=== PATIENT | female | born 1995 | race Caucasian/White ===

== ENCOUNTER 2018-11-23 13:02 | Emergency (ER) | payer MEDICAID, OTHER ==
[~2018-11-23] VITALS: Ht 170.2 cm; Wt 66.8 kg
[~2018-11-23 13:02] MED LIST: GUAI120015 PO; IBUP-1986 PO
[2018-11-23 13:44] VITALS: BP 101/61
[2018-11-23] MEDS ORDERED: CefTRIAXone 250MG IM Kit w/LIDOcaine IM ONE (14:25)
[2018-11-23] MEDS ORDERED: azithromycin 250mg tablet PO ONE (14:25)
[2018-11-23 14:26] LABS: URINE HCG NEGATIVE (NEG)
[2018-11-23 14:32] LABS: CLARITY,URINE CLEAR (Clear); COLOR,URINE STRAW (Yellow); GLUCOSE, URINE NEGATIVE (Neg); KETONES,URINE NEGATIVE (Neg); LEUKOCYTE ESTERASE ,URINE NEGATIVE (Neg); NITRITES, URINE NEGATIVE (Neg); OCCULT BLOOD,URINE NEGATIVE (Neg); PROTEIN,URINE NEGATIVE (Neg); UROBILINOGEN,URINE 0.2 E.U/dL (0.2-1.0)
[2018-11-23 14:40] LABS: UA COLLECTION TYPE NON-SPECIFIED
[2018-11-23] MEDS ORDERED: PHEN-786 PO (15:19)
== END 2018-11-23 15:48 | disposition home or self-care (01) ==
LOC: ER 13:02
DX: R30.0 Dysuria (principal); R35.0 Frequency of micturition; R39.15 Urgency of urination; Z79.899 Other long term (current) drug therapy
CPT/HCPCS: 81003; 81025; 96372; 99283; J0696

== ENCOUNTER 2018-11-28 08:43 | Emergency (ER) | payer MEDICAID, OTHER ==
[~2018-11-28] VITALS: Ht 170.2 cm; Wt 65.5 kg
[~2018-11-28 08:43] MED LIST changes: +PHEN-786 PO
[2018-11-28 09:21] LABS: BASOPHILS # (AUTO) 0.1 X10'3 (0-0.2); BASOPHILS % (AUTO) 1.5 % (0-1); EOSINOPHILS # (AUTO) 0.5 X10'3 (0-0.9); EOSINOPHILS % (AUTO) 9.9 % (0-6); HEMATOCRIT 43.2 % (35.0-45.0); LYMPHOCYTES % (AUTO) 43.4 % (21-51); MEAN CORPUSCULAR HEMOGLOBIN 33.3 PG (27.0-31.0); MEAN CORPUSCULAR HGB CONC 34.9 g/dL (33.0-36.5); MEAN CORPUSCULAR VOLUME 95.5 FL (78-98); MEAN PLATELET VOLUME 8.5 FL (7.4-10.4); MONOCYTES # (AUTO) 0.4 X10'3 (0-0.9); MONOCYTES % (AUTO) 9.6 % (2-12); NEUTROPHILS # (AUTO) 1.6 X10'3 (1.8-7.7); NEUTROPHILS % (AUTO) 35.6 % (42-75); PLATELET COUNT 252 X10'3 (140-440); RED BLOOD COUNT 4.52 X10'6 (4.20-5.60); RED CELL DISTRIBUTION WIDTH 12.5 % (11.5-14.5); WHITE BLOOD COUNT 4.6 X10'3 (4.5-11.0)
[2018-11-28 09:35] LABS: ALANINE AMINOTRANSFERASE 21 U/L (12-78); ALBUMIN 4.6 G/DL (3.4-5.0); ALBUMIN/GLOBULIN RATIO 1.2 (1.1-1.5); ALKALINE PHOSPHATASE 64 IU/L (46-116); ANION GAP 9 (8-16); ASPARTATE AMINO TRANSFERASE 20 U/L (10-37); BILIRUBIN,TOTAL 1.5 MG/DL (0.1-1.0); BLOOD UREA NITROGEN 13 MG/DL (7-18); BUN/CREATININE RATIO 16.7 (6.6-38.0); CALCIUM 9.2 MG/DL (8.5-10.1); CHLORIDE 104 MMOL/L (99-107); CREATININE 0.78 MG/DL (0.40-0.90); GLUCOSE 88 MG/DL (70-104); SODIUM 139 MMOL/L (135-145); TOTAL CARBON DIOXIDE 26.2 MMOL/L (24-32); TOTAL PROTEIN 8.3 G/DL (6.4-8.2); eGFR > 90 ML/MIN
[2018-11-28 10:02] LABS: CLARITY,URINE SLIGHTLY CLOUDY (Clear); COLOR,URINE YELLOW (Yellow); GLUCOSE, URINE NEGATIVE (Neg); KETONES,URINE NEGATIVE (Neg); LEUKOCYTE ESTERASE ,URINE NEGATIVE (Neg); NITRITES, URINE NEGATIVE (Neg); OCCULT BLOOD,URINE NEGATIVE (Neg); PROTEIN,URINE NEGATIVE (Neg); UROBILINOGEN,URINE 0.2 E.U/dL (0.2-1.0)
[2018-11-28 10:15] LABS: UA COLLECTION TYPE CLN CATCH MIDSTREAM
[2018-11-28 10:17] LABS: BACTERIA,URINE 2+ /HPF (Neg); MUCUS STRANDS NONE SEEN /LPF (Neg); RBC,URINE NONE SEEN /HPF (0-2); SQUAMOUS EPITHELIAL CELL,UR MANY /LPF (FEW); WBC,URINE 0-4 /HPF (0-4)
[2018-11-28 10:24] LABS: URINE HCG NEGATIVE (NEG)
[2018-11-28 10:44] VITALS: BP 109/55
== END 2018-11-28 10:46 | disposition home or self-care (01) ==
LOC: ER 08:44
DX: G89.29 Other chronic pain (principal); R10.2 Pelvic and perineal pain; Z79.899 Other long term (current) drug therapy
CPT/HCPCS: 36415; 80053; 81001; 81025; 85025; 99283

== ENCOUNTER 2019-01-04 03:12 | Emergency (ER) | payer MEDICAID ==
[~2019-01-04] VITALS: Ht 170.2 cm; Wt 62.7 kg
[~2019-01-04 03:12] MED LIST changes: +LIDO30CR23 TOP
[2019-01-04 04:16] LABS: CLARITY,URINE CLEAR (Clear); COLOR,URINE YELLOW (Yellow); GLUCOSE, URINE NEGATIVE (Neg); KETONES,URINE TRACE mg/dl (Neg); LEUKOCYTE ESTERASE ,URINE NEGATIVE (Neg); NITRITES, URINE NEGATIVE (Neg); OCCULT BLOOD,URINE NEGATIVE (Neg); PROTEIN,URINE NEGATIVE (Neg); UROBILINOGEN,URINE 0.2 E.U/dL (0.2-1.0)
[2019-01-04 04:17] LABS: URINE HCG NEGATIVE (NEG)
[2019-01-04 04:21] VITALS: BP 119/79
[2019-01-04 04:24] LABS: UA COLLECTION TYPE VOIDED
== END 2019-01-04 04:40 | disposition home or self-care (01) ==
LOC: ER 03:12
DX: R30.0 Dysuria (principal); R39.15 Urgency of urination; R10.31 Right lower quadrant pain; Z79.899 Other long term (current) drug therapy
CPT/HCPCS: 81003; 81025; 99283

== ENCOUNTER 2019-06-17 21:02 | Emergency (ER) | payer MEDICAID ==
[~2019-06-17] VITALS: Ht 170.2 cm; Wt 63.0 kg
[2019-06-17 21:11] VITALS: BP 107/58
--- NOTE | 2019-06-17 22:35 | NUR ---
PT LEAVING ED W/O BEING SEEN, PT HAS TO WORK IN THE MORNING AND CAN'T WAIT ANY LONGER.
[2019-06-18] MEDS ORDERED: METR500T PO (10:08)
[2019-06-18] MEDS ORDERED: BACDS PO (10:08)
== END 2019-06-17 22:57 | disposition left against medical advice (07) ==
LOC: ER 21:05
DX: N89.8 Other specified noninflammatory disorders of vagina (principal); R30.0 Dysuria; R10.2 Pelvic and perineal pain; Z53.21 Procedure and treatment not carried out due to patient leaving prior to being seen by health care provider

== ENCOUNTER 2019-06-18 07:40 | Emergency (ER) | payer MEDICAID ==
[~2019-06-18] VITALS: Ht 170.2 cm; Wt 63.6 kg
[2019-06-18] MEDS ORDERED: CefTRIAXone 250MG inj IM ONE (09:10)
[2019-06-18] MEDS ORDERED: azithromycin 250mg tablet PO ONE (09:10)
[2019-06-18] MEDS ORDERED: CefTRIAXone 250MG IM Kit w/LIDOcaine IM ONE (09:20)
[2019-06-18 09:24] LABS: URINE HCG NEGATIVE (NEG)
[2019-06-18 09:25] LABS: CLARITY,URINE CLEAR (Clear); COLOR,URINE STRAW (Yellow); GLUCOSE, URINE NEGATIVE (Neg); KETONES,URINE NEGATIVE (Neg); LEUKOCYTE ESTERASE ,URINE NEGATIVE (Neg); NITRITES, URINE NEGATIVE (Neg); OCCULT BLOOD,URINE NEGATIVE (Neg); PROTEIN,URINE NEGATIVE (Neg); UROBILINOGEN,URINE 0.2 E.U/dL (0.2-1.0)
[2019-06-18 09:33] LABS: UA COLLECTION TYPE CLN CATCH MIDSTREAM
[2019-06-18] MEDS ORDERED: METR500T PO (10:08)
[2019-06-18] MEDS ORDERED: BACDS PO (10:08)
[2019-06-18 10:21] VITALS: BP 134/65
== END 2019-06-18 10:22 | disposition home or self-care (01) ==
LOC: ER 07:40
DX: N89.8 Other specified noninflammatory disorders of vagina (principal); F10.99 Alcohol use, unspecified with unspecified alcohol-induced disorder; Z79.899 Other long term (current) drug therapy; Y90.9 Presence of alcohol in blood, level not specified
CPT/HCPCS: 36415; 81003; 81025; 87491; 87591; 96372; 99283; J0696; Q0112

== ENCOUNTER 2019-12-23 20:05 | Emergency (ER) | payer MEDICAID ==
[~2019-12-23] VITALS: Ht 170.2 cm; Wt 63.6 kg
[2019-12-23 20:09] VITALS: BP 96/62
[2019-12-23 20:50] LABS: CLARITY,URINE SLIGHTLY CLOUDY (Clear)
[2019-12-23 20:51] LABS: URINE HCG NEGATIVE (NEG)
[2019-12-23 21:07] LABS: UA COLLECTION TYPE CLN CATCH MIDSTREAM
[2019-12-23 21:09] LABS: COLOR,URINE ORANGE (Yellow)
[2019-12-23 21:13] LABS: AMORPHOUS URATES 2+; SQUAMOUS EPITHELIAL CELL,UR MANY /LPF (FEW)
[2019-12-23 21:14] LABS: BACTERIA,URINE NONE SEEN /HPF (Neg); MUCUS STRANDS MODERATE /LPF (Neg); RBC,URINE 0-2 /HPF (0-2); WBC,URINE 0-4 /HPF (0-4)
[2019-12-23] MEDS ORDERED: CEPH-572 PO (22:48)
[2019-12-23] MEDS ORDERED: NITR100C6 PO (22:48)
== END 2019-12-23 22:53 | disposition home or self-care (01) ==
LOC: ER 20:06
DX: R30.0 Dysuria (principal); R10.9 Unspecified abdominal pain; R10.2 Pelvic and perineal pain; Z72.89 Other problems related to lifestyle; Z79.899 Other long term (current) drug therapy
CPT/HCPCS: 81001; 81025; 87210; 99283; 99284

== ENCOUNTER 2019-12-25 19:07 | Emergency (ER) | payer MEDICAID ==
[~2019-12-25] VITALS: Ht 170.2 cm; Wt 61.0 kg
[~2019-12-25 19:07] MED LIST changes: +CEPH-572 PO; +NITR100C6 PO
[2019-12-25 20:05] LABS: CLARITY,URINE SLIGHTLY CLOUDY (Clear); COLOR,URINE ORANGE (Yellow); GLUCOSE, URINE 100 mg/dl (Neg); KETONES,URINE TRACE mg/dl (Neg); LEUKOCYTE ESTERASE ,URINE NEGATIVE (Neg); NITRITES, URINE POSITIVE (Neg); OCCULT BLOOD,URINE NEGATIVE (Neg); PROTEIN,URINE 100 mg/dl (Neg); URINE HCG NEGATIVE (NEG)
[2019-12-25 20:08] LABS: UA COLLECTION TYPE CLN CATCH MIDSTREAM
[2019-12-25 20:10] LABS: BACTERIA,URINE 1+ /HPF (Neg); RBC,URINE NONE SEEN /HPF (0-2); SQUAMOUS EPITHELIAL CELL,UR FEW /LPF (FEW); WBC,URINE 0-4 /HPF (0-4)
[2019-12-25] MEDS ORDERED: SULF1TAB49 PO (21:46)
[2019-12-25 22:52] VITALS: BP 132/62
== END 2019-12-25 22:40 | disposition home or self-care (01) ==
LOC: ER 19:08
DX: N39.0 Urinary tract infection, site not specified (principal); K62.89 Other specified diseases of anus and rectum; G89.29 Other chronic pain; R10.32 Left lower quadrant pain; Z72.89 Other problems related to lifestyle; Z79.899 Other long term (current) drug therapy
CPT/HCPCS: 81001; 81025; 87088; 99284

== ENCOUNTER 2019-12-30 05:34 | Emergency (ER) | payer MEDICAID ==
[~2019-12-30] VITALS: Ht 170.2 cm; Wt 65.9 kg
[~2019-12-30 05:34] MED LIST changes: +SULF1TAB49 PO
[2019-12-30 05:38] VITALS: BP 105/79
--- NOTE | 2019-12-30 05:46 | NUR ---
HAS A DX JUST NEEDS ABX AND HER SYMPTOMS ARE IN THE TRIAGE NOTE I JUST POSTED.
[2019-12-30 07:22] LABS: URINE HCG NEGATIVE (NEG)
--- NOTE | 2019-12-30 07:25 | NUR ---
Patient states that she is no longer able to wait due to the fact that she has to be a work at 0800 and at this time "I have not been seen by a doctor". Patients urine has been sent: x1 dirty catch and x1 clean catch and this was notified to MD after sending clean catch at 0710.
[2019-12-30 07:27] LABS: CLARITY,URINE CLEAR (Clear); COLOR,URINE YELLOW (Yellow); GLUCOSE, URINE NEGATIVE (Neg); KETONES,URINE NEGATIVE (Neg); LEUKOCYTE ESTERASE ,URINE NEGATIVE (Neg); NITRITES, URINE NEGATIVE (Neg); OCCULT BLOOD,URINE NEGATIVE (Neg); PH,URINE 7.5 (4.8-8.0); PROTEIN,URINE NEGATIVE (Neg); UROBILINOGEN,URINE 0.2 E.U/dL (0.2-1.0)
[2019-12-30 07:30] LABS: UA COLLECTION TYPE CLN CATCH MIDSTREAM
[2019-12-30] MEDS ORDERED: LACT1CAP60 PO (17:51)
[2019-12-30] MEDS ORDERED: CLE2VCR VG (17:51)
== END 2019-12-30 07:28 | disposition left against medical advice (07) ==
LOC: ER 05:34
DX: R10.2 Pelvic and perineal pain (principal); Z53.21 Procedure and treatment not carried out due to patient leaving prior to being seen by health care provider
CPT/HCPCS: 36415; 81003; 81025; 87491

== ENCOUNTER 2019-12-30 15:14 | Emergency (ER) | payer MEDICAID ==
[~2019-12-30] VITALS: Ht 170.2 cm; Wt 65.9 kg
[2019-12-30] MEDS ORDERED: LACT1CAP60 PO (17:51)
[2019-12-30] MEDS ORDERED: CLE2VCR VG (17:51)
[2019-12-30 18:09] VITALS: BP 119/75
== END 2019-12-30 18:10 | disposition home or self-care (01) ==
LOC: ER 15:16
DX: N76.0 Acute vaginitis (principal); Z86.69 Personal history of other diseases of the nervous system and sense organs; Z87.440 Personal history of urinary (tract) infections; Z72.89 Other problems related to lifestyle; Z79.2 Long term (current) use of antibiotics; Z79.899 Other long term (current) drug therapy
CPT/HCPCS: 87210; 99283

== ENCOUNTER 2020-01-02 21:01 | Emergency (ER) | payer MEDICAID ==
[~2020-01-02] VITALS: Ht 170.2 cm; Wt 63.6 kg
[~2020-01-02 21:01] MED LIST changes: -CEPH-572 PO; +CLE2VCR VG; +LACT1CAP60 PO
[2020-01-02 21:05] VITALS: BP 127/67
== END 2020-01-02 22:06 | disposition left against medical advice (07) ==
LOC: ER 21:02
DX: R30.0 Dysuria (principal); Z86.69 Personal history of other diseases of the nervous system and sense organs; Z72.89 Other problems related to lifestyle; Z79.899 Other long term (current) drug therapy
CPT/HCPCS: 99281

== ENCOUNTER 2020-01-15 23:55 | Emergency (ER) | payer MEDICAID ==
[~2020-01-15] VITALS: Ht 170.2 cm; Wt 62.0 kg
[~2020-01-15 23:55] MED LIST changes: -CLE2VCR VG; -SULF1TAB49 PO
[2020-01-16 00:20] LABS: CLARITY,URINE SLIGHTLY CLOUDY (Clear); COLOR,URINE YELLOW (Yellow); GLUCOSE, URINE NEGATIVE (Neg); KETONES,URINE NEGATIVE (Neg); LEUKOCYTE ESTERASE ,URINE NEGATIVE (Neg); NITRITES, URINE NEGATIVE (Neg); OCCULT BLOOD,URINE LARGE (Neg); PH,URINE 5.5 (4.8-8.0); PROTEIN,URINE 30 mg/dl (Neg); UROBILINOGEN,URINE 0.2 E.U/dL (0.2-1.0)
[2020-01-16] MEDS ORDERED: ondansetron/PF 4mg/2ml inj IV ONE (00:20)
[2020-01-16] MEDS ORDERED: normal saline 1000ML IV soln IVB ONE (00:20)
[2020-01-16] MEDS ORDERED: ketorolac trometh. 30mg/ml inj. IV ONE (00:20)
[2020-01-16 00:22] LABS: URINE HCG NEGATIVE (NEG)
[2020-01-16 00:27] LABS: UA COLLECTION TYPE CLN CATCH MIDSTREAM
[2020-01-16 00:28] LABS: BACTERIA,URINE 1+ /HPF (Neg); SQUAMOUS EPITHELIAL CELL,UR FEW /LPF (FEW); WBC,URINE 0-4 /HPF (0-4)
[2020-01-16 00:50] LABS: BASOPHILS # (AUTO) 0.1 X10'3 (0-0.2); BASOPHILS % (AUTO) 0.8 % (0-1); EOSINOPHILS # (AUTO) 0.4 X10'3 (0-0.9); EOSINOPHILS % (AUTO) 4.3 % (0-6); HEMATOCRIT 34.3 % (35.0-45.0); HEMOGLOBIN 11.8 g/dl (12.0-16.0); LYMPHOCYTES # (AUTO) 2.4 X10'3 (1.1-4.8); LYMPHOCYTES % (AUTO) 24.5 % (21-51); MEAN CORPUSCULAR HEMOGLOBIN 33.2 PG (27.0-31.0); MEAN CORPUSCULAR HGB CONC 34.3 g/dL (33.0-36.5); MEAN CORPUSCULAR VOLUME 96.9 FL (78-98); MEAN PLATELET VOLUME 7.5 FL (7.4-10.4); MONOCYTES % (AUTO) 10.2 % (2-12); NEUTROPHILS # (AUTO) 5.8 X10'3 (1.8-7.7); NEUTROPHILS % (AUTO) 60.2 % (42-75); PLATELET COUNT 277 X10'3 (140-440); RED BLOOD COUNT 3.54 X10'6 (4.20-5.60); RED CELL DISTRIBUTION WIDTH 13.3 % (11.5-14.5); WHITE BLOOD COUNT 9.7 X10'3 (4.5-11.0)
[2020-01-16 01:01] LABS: ALANINE AMINOTRANSFERASE 17 U/L (12-78); ALBUMIN 3.9 G/DL (3.4-5.0); ALBUMIN/GLOBULIN RATIO 1.2 (1.1-1.5); ALKALINE PHOSPHATASE 44 IU/L (46-116); ANION GAP 10 (8-16); ASPARTATE AMINO TRANSFERASE 19 U/L (10-37); BILIRUBIN,TOTAL 1.6 MG/DL (0.1-1.0); BLOOD UREA NITROGEN 14 MG/DL (7-18); CALCIUM 8.8 MG/DL (8.5-10.1); CHLORIDE 105 MMOL/L (99-107); CREATININE 1.55 MG/DL (0.40-0.90); GLUCOSE 95 MG/DL (70-104); LIPASE 139 U/L (73-393); POTASSIUM 3.2 MMOL/L (3.5-5.1); SODIUM 141 MMOL/L (135-145); TOTAL CARBON DIOXIDE 26.5 MMOL/L (24-32); TOTAL PROTEIN 7.2 G/DL (6.4-8.2); eGFR 41 ML/MIN
[2020-01-16] MEDS ORDERED: potassium Cl 20 mEq SR tablet PO STA (01:27)
[2020-01-16] MEDS ORDERED: ONDA4TAB6 PO (01:56)
[2020-01-16] MEDS ORDERED: HYDR-3965 PO (01:56)
[2020-01-16] MEDS ORDERED: KETO10TA2 PO (01:56)
[2020-01-16] MEDS ORDERED: LEVO500T2 PO (01:56)
[2020-01-16 02:17] VITALS: BP 128/72
== END 2020-01-16 02:19 | disposition home or self-care (01) ==
LOC: ER 23:56
DX: N10 Acute pyelonephritis (principal); N39.0 Urinary tract infection, site not specified; E87.6 Hypokalemia; M54.5 Low back pain; Z86.69 Personal history of other diseases of the nervous system and sense organs; Z72.89 Other problems related to lifestyle; Z79.899 Other long term (current) drug therapy
CPT/HCPCS: 36415; 74176; 80053; 81001; 81025; 83690; 85025; 96374; 96375; 99284; J1885; J2405; J7030

== ENCOUNTER 2020-01-18 18:54 | Emergency (ER) | payer MEDICAID ==
[~2020-01-18] VITALS: Ht 170.2 cm; Wt 65.9 kg
[~2020-01-18 18:54] MED LIST changes: +HYDR-3965 PO; +KETO10TA2 PO; +LEVO500T2 PO; +ONDA4TAB6 PO
[2020-01-18 19:24] LABS: BASOPHILS % (AUTO) 0.7 % (0-1); EOSINOPHILS # (AUTO) 0.1 X10'3 (0-0.9); EOSINOPHILS % (AUTO) 1.9 % (0-6); HEMOGLOBIN 11.2 g/dl (12.0-16.0); LYMPHOCYTES # (AUTO) 2.2 X10'3 (1.1-4.8); LYMPHOCYTES % (AUTO) 38.8 % (21-51); MEAN CORPUSCULAR HEMOGLOBIN 31.7 PG (27.0-31.0); MEAN CORPUSCULAR VOLUME 96.2 FL (78-98); MEAN PLATELET VOLUME 7.3 FL (7.4-10.4); MONOCYTES # (AUTO) 0.4 X10'3 (0-0.9); MONOCYTES % (AUTO) 7.9 % (2-12); NEUTROPHILS # (AUTO) 2.9 X10'3 (1.8-7.7); NEUTROPHILS % (AUTO) 50.7 % (42-75); PLATELET COUNT 259 X10'3 (140-440); RED BLOOD COUNT 3.54 X10'6 (4.20-5.60); RED CELL DISTRIBUTION WIDTH 13.3 % (11.5-14.5); WHITE BLOOD COUNT 5.7 X10'3 (4.5-11.0)
[2020-01-18 19:30] LABS: CLARITY,URINE CLEAR (Clear); COLOR,URINE YELLOW (Yellow); GLUCOSE, URINE NEGATIVE (Neg); KETONES,URINE 15 mg/dl (Neg); LEUKOCYTE ESTERASE ,URINE NEGATIVE (Neg); NITRITES, URINE NEGATIVE (Neg); OCCULT BLOOD,URINE LARGE (Neg); PROTEIN,URINE NEGATIVE (Neg); URINE HCG NEGATIVE (NEG); UROBILINOGEN,URINE 0.2 E.U/dL (0.2-1.0)
[2020-01-18 19:33] LABS: UA COLLECTION TYPE CLN CATCH MIDSTREAM
[2020-01-18 19:37] LABS: ALANINE AMINOTRANSFERASE 15 U/L (12-78); ALBUMIN 4.1 G/DL (3.4-5.0); ALBUMIN/GLOBULIN RATIO 0.9 (1.1-1.5); ALKALINE PHOSPHATASE 42 IU/L (46-116); ANION GAP 8 (8-16); ASPARTATE AMINO TRANSFERASE 18 U/L (10-37); BILIRUBIN,TOTAL 1.3 MG/DL (0.1-1.0); BLOOD UREA NITROGEN 8 MG/DL (7-18); CHLORIDE 101 MMOL/L (99-107); GLUCOSE 93 MG/DL (70-104); LIPASE 61 U/L (73-393); POTASSIUM 3.9 MMOL/L (3.5-5.1); SODIUM 137 MMOL/L (135-145); TOTAL CARBON DIOXIDE 27.7 MMOL/L (24-32); TOTAL PROTEIN 8.5 G/DL (6.4-8.2); eGFR 69 ML/MIN
[2020-01-18 19:39] LABS: BACTERIA,URINE FEW /HPF (Neg); SQUAMOUS EPITHELIAL CELL,UR MODERATE /LPF (FEW); WBC,URINE 0-4 /HPF (0-4)
[2020-01-18] MEDS ORDERED: PHEN-786 PO (21:16)
[2020-01-18 21:29] VITALS: BP 97/65
== END 2020-01-18 21:36 | disposition home or self-care (01) ==
LOC: ER 18:54
DX: R30.0 Dysuria (principal); R11.0 Nausea; R10.30 Lower abdominal pain, unspecified; Z86.69 Personal history of other diseases of the nervous system and sense organs; Z87.440 Personal history of urinary (tract) infections; Z72.89 Other problems related to lifestyle; Z79.2 Long term (current) use of antibiotics; Z79.899 Other long term (current) drug therapy
CPT/HCPCS: 36415; 80053; 81001; 81025; 83690; 85025; 99283

== ENCOUNTER 2020-01-22 17:35 | Emergency (ER) | payer MEDICAID ==
[~2020-01-22] VITALS: Ht 170.2 cm; Wt 63.6 kg
[2020-01-22 18:48] LABS: URINE HCG NEGATIVE (NEG)
[2020-01-22 18:50] LABS: CLARITY,URINE SLIGHTLY CLOUDY (Clear); COLOR,URINE YELLOW (Yellow); GLUCOSE, URINE NEGATIVE (Neg); KETONES,URINE TRACE mg/dl (Neg); LEUKOCYTE ESTERASE ,URINE NEGATIVE (Neg); NITRITES, URINE NEGATIVE (Neg); OCCULT BLOOD,URINE NEGATIVE (Neg); PROTEIN,URINE NEGATIVE (Neg); UROBILINOGEN,URINE 0.2 E.U/dL (0.2-1.0)
[2020-01-22 18:53] LABS: UA COLLECTION TYPE CLN CATCH MIDSTREAM
[2020-01-22 19:03] LABS: MUCUS STRANDS MANY /LPF (Neg); SQUAMOUS EPITHELIAL CELL,UR MODERATE /LPF (FEW); TRANSITIONAL EPI CELLS,URINE FEW /HPF
[2020-01-22 19:04] LABS: BACTERIA,URINE NONE SEEN /HPF (Neg); RBC,URINE 0-2 /HPF (0-2); WBC,URINE 0-4 /HPF (0-4)
[2020-01-22 21:25] VITALS: BP 135/85
== END 2020-01-22 21:26 | disposition home or self-care (01) ==
LOC: ER 17:36
DX: N89.8 Other specified noninflammatory disorders of vagina (principal); R10.2 Pelvic and perineal pain; J45.909 Unspecified asthma, uncomplicated; F12.90 Cannabis use, unspecified, uncomplicated; Z86.69 Personal history of other diseases of the nervous system and sense organs; Z79.899 Other long term (current) drug therapy
CPT/HCPCS: 81001; 81025; 87210; 99284; Q0112

== ENCOUNTER 2020-01-24 04:01 | Emergency (ER) | payer MEDICAID ==
[~2020-01-24] VITALS: Ht 170.2 cm; Wt 64.0 kg
[2020-01-24 04:07] VITALS: BP 143/82
[2020-01-24 04:47] LABS: CLARITY,URINE CLOUDY (Clear); COLOR,URINE YELLOW (Yellow); GLUCOSE, URINE NEGATIVE (Neg); KETONES,URINE NEGATIVE (Neg); LEUKOCYTE ESTERASE ,URINE TRACE (Neg); NITRITES, URINE NEGATIVE (Neg); OCCULT BLOOD,URINE NEGATIVE (Neg); PH,URINE 5.5 (4.8-8.0); PROTEIN,URINE TRACE mg/dl (Neg); URINE HCG NEGATIVE (NEG); UROBILINOGEN,URINE 0.2 E.U/dL (0.2-1.0)
[2020-01-24 04:48] LABS: UA COLLECTION TYPE CLN CATCH MIDSTREAM
[2020-01-24 05:02] LABS: MUCUS STRANDS FEW /LPF (Neg); SQUAMOUS EPITHELIAL CELL,UR MANY /LPF (FEW)
[2020-01-24 05:04] LABS: BACTERIA,URINE 2+ /HPF (Neg); RBC,URINE 0-2 /HPF (0-2)
[2020-01-24 05:05] LABS: WBC,URINE 0-4 /HPF (0-4)
== END 2020-01-24 06:04 | disposition home or self-care (01) ==
LOC: ER 04:02
DX: G89.29 Other chronic pain (principal); R10.2 Pelvic and perineal pain; J45.909 Unspecified asthma, uncomplicated; F12.90 Cannabis use, unspecified, uncomplicated; Z86.69 Personal history of other diseases of the nervous system and sense organs; Z79.899 Other long term (current) drug therapy
CPT/HCPCS: 81001; 81025; 99283

== ENCOUNTER 2020-02-10 16:00 | Emergency (ER) | payer MEDICAID ==
[~2020-02-10] VITALS: Ht 170.2 cm; Wt 63.6 kg
[2020-02-10 18:27] VITALS: BP 107/71
== END 2020-02-10 18:30 | disposition home or self-care (01) ==
LOC: ER 16:01
DX: R07.89 Other chest pain (principal); J45.909 Unspecified asthma, uncomplicated; F12.90 Cannabis use, unspecified, uncomplicated; Z86.69 Personal history of other diseases of the nervous system and sense organs; Z79.899 Other long term (current) drug therapy
CPT/HCPCS: 71045; 93005; 99283

== ENCOUNTER → 2020-03-15 | Outpatient (CLI) | payer MEDICAID ==
[~2020-03-15] MED LIST changes: -HYDR-3965 PO; -LEVO500T2 PO
== END | disposition home or self-care (01) ==
LOC: RAD 08:32
PROVIDERS: ATTEND Family Medicine
DX: R40.4 Transient alteration of awareness (principal)
CPT/HCPCS: 95819

== ENCOUNTER 2020-04-11 04:19 | Emergency (ER) | payer MEDICAID ==
[~2020-04-11] VITALS: Ht 170.2 cm; Wt 63.6 kg
[2020-04-11 04:24] VITALS: BP 142/93
[2020-04-11 05:06] LABS: URINE HCG NEGATIVE (NEG)
[2020-04-11 05:13] LABS: CLARITY,URINE CLEAR (Clear); GLUCOSE, URINE NEGATIVE (Neg); KETONES,URINE NEGATIVE (Neg); LEUKOCYTE ESTERASE ,URINE NEGATIVE (Neg); NITRITES, URINE POSITIVE (Neg); OCCULT BLOOD,URINE NEGATIVE (Neg); PROTEIN,URINE NEGATIVE (Neg)
[2020-04-11 05:18] LABS: COLOR,URINE DARK YELLOW (Yellow); UA COLLECTION TYPE CLN CATCH MIDSTREAM
[2020-04-11 05:24] LABS: RBC,URINE 0-2 /HPF (0-2)
[2020-04-11 05:25] LABS: BACTERIA,URINE 2+ /HPF (Neg); SQUAMOUS EPITHELIAL CELL,UR MODERATE /LPF (FEW)
[2020-04-11] MEDS ORDERED: NITR100C6 PO (05:29)
== END 2020-04-11 05:41 | disposition home or self-care (01) ==
LOC: ER 04:20
DX: R30.0 Dysuria (principal); R39.15 Urgency of urination; N89.8 Other specified noninflammatory disorders of vagina; M54.89 Other dorsalgia; J45.909 Unspecified asthma, uncomplicated; F12.90 Cannabis use, unspecified, uncomplicated; Z87.440 Personal history of urinary (tract) infections; Z86.69 Personal history of other diseases of the nervous system and sense organs; Z79.899 Other long term (current) drug therapy
CPT/HCPCS: 81001; 81025; 87088; 99283

== ENCOUNTER 2020-04-22 10:37 | Emergency (ER) | payer MEDICAID ==
[~2020-04-22] VITALS: Ht 170.2 cm; Wt 63.0 kg
[2020-04-22 10:54] VITALS: BP 92/63
[2020-04-22 11:49] LABS: CLARITY,URINE SLIGHTLY CLOUDY (Clear); COLOR,URINE YELLOW (Yellow); GLUCOSE, URINE NEGATIVE (Neg); KETONES,URINE 15 mg/dl (Neg); LEUKOCYTE ESTERASE ,URINE NEGATIVE (Neg); NITRITES, URINE NEGATIVE (Neg); OCCULT BLOOD,URINE NEGATIVE (Neg); PH,URINE 5.5 (4.8-8.0); PROTEIN,URINE NEGATIVE (Neg); URINE HCG NEGATIVE (NEG); UROBILINOGEN,URINE 0.2 E.U/dL (0.2-1.0)
[2020-04-22 11:50] LABS: UA COLLECTION TYPE CLN CATCH MIDSTREAM
[2020-04-22 11:55] LABS: BACTERIA,URINE FEW /HPF (Neg); MUCUS STRANDS FEW /LPF (Neg); SQUAMOUS EPITHELIAL CELL,UR MODERATE /LPF (FEW)
[2020-04-22 11:56] LABS: RBC,URINE 0-2 /HPF (0-2); TRANSITIONAL EPI CELLS,URINE FEW /HPF; WBC,URINE 0-4 /HPF (0-4)
[2020-04-22] MEDS ORDERED: CefTRIAXone 1000mg IM Kit (w/lidocaine diluent) IM ONE (12:35)
== END 2020-04-22 12:52 | disposition home or self-care (01) ==
LOC: ER 10:38
DX: R39.15 Urgency of urination (principal); N39.0 Urinary tract infection, site not specified; N23 Unspecified renal colic; F12.10 Cannabis abuse, uncomplicated; Z79.899 Other long term (current) drug therapy
CPT/HCPCS: 81001; 81025; 99283

== ENCOUNTER 2020-08-10 16:29 | Emergency (ER) | payer MEDICAID ==
[~2020-08-10] VITALS: Ht 170.2 cm; Wt 66.8 kg
[2020-08-10 17:31] VITALS: BP 120/93
== END 2020-08-10 17:32 | disposition home or self-care (01) ==
LOC: ER 16:30
DX: G89.29 Other chronic pain (principal); R10.9 Unspecified abdominal pain; K62.89 Other specified diseases of anus and rectum; K59.09 Other constipation; G43.909 Migraine, unspecified, not intractable, without status migrainosus; J45.909 Unspecified asthma, uncomplicated; F12.90 Cannabis use, unspecified, uncomplicated; Z87.440 Personal history of urinary (tract) infections; Z79.899 Other long term (current) drug therapy
CPT/HCPCS: 74018; 99283

== ENCOUNTER 2020-10-08 14:40 | Emergency (ER) | payer MEDICAID ==
[~2020-10-08] VITALS: Ht 170.2 cm; Wt 66.0 kg
[2020-10-08 14:44] VITALS: BP 104/65
[2020-10-08 15:53] LABS: CLARITY,URINE CLOUDY (Clear); COLOR,URINE YELLOW (Yellow); GLUCOSE, URINE NEGATIVE (Neg); KETONES,URINE NEGATIVE (Neg); LEUKOCYTE ESTERASE ,URINE NEGATIVE (Neg); NITRITES, URINE NEGATIVE (Neg); OCCULT BLOOD,URINE NEGATIVE (Neg); PH,URINE 6.5 (4.8-8.0); PROTEIN,URINE NEGATIVE (Neg); UROBILINOGEN,URINE 0.2 E.U/dL (0.2-1.0)
[2020-10-08 16:01] LABS: UA COLLECTION TYPE CLN CATCH MIDSTREAM
[2020-10-08 16:02] LABS: BACTERIA,URINE 1+ /HPF (Neg); MUCUS STRANDS FEW /LPF (Neg); RBC,URINE 0-2 /HPF (0-2); SQUAMOUS EPITHELIAL CELL,UR MANY /LPF (FEW); WBC,URINE 0-4 /HPF (0-4)
== END 2020-10-08 16:41 | disposition home or self-care (01) ==
LOC: ER 14:41
DX: R10.30 Lower abdominal pain, unspecified (principal); J45.909 Unspecified asthma, uncomplicated; F12.90 Cannabis use, unspecified, uncomplicated; Z86.69 Personal history of other diseases of the nervous system and sense organs; Z79.899 Other long term (current) drug therapy
CPT/HCPCS: 81001; 99283

== ENCOUNTER 2020-12-12 17:34 | Emergency (ER) | payer MEDICAID ==
[~2020-12-12] VITALS: Ht 170.2 cm; Wt 63.6 kg
[~2020-12-12 17:34] MED LIST changes: +LIDO30CR TOP; -LIDO30CR23 TOP
[2020-12-12 17:43] VITALS: BP 104/7
== END 2020-12-12 20:02 | disposition left against medical advice (07) ==
LOC: ER 17:35
DX: R10.2 Pelvic and perineal pain (principal); Z53.21 Procedure and treatment not carried out due to patient leaving prior to being seen by health care provider

== ENCOUNTER 2022-11-30 12:53 | Emergency (ER) | payer BC, MEDICAID ==
[~2022-11-30] VITALS: Ht 170.2 cm; Wt 71.8 kg
[2022-11-30 13:03] VITALS: BP 119/79
[2022-11-30] MEDS ORDERED: ketorolac tromethamine 15mg/ml inj. IM ONE (14:50)
== END 2022-11-30 15:16 | disposition home or self-care (01) ==
LOC: ER 12:53
DX: R07.81 Pleurodynia (principal); J45.909 Unspecified asthma, uncomplicated; F12.10 Cannabis abuse, uncomplicated; Z88.8 Allergy status to other drugs, medicaments and biological substances; Z79.899 Other long term (current) drug therapy
CPT/HCPCS: 71046; 96372; 99283; J1885

== ENCOUNTER 2025-02-14 19:33 | Emergency (ER) | payer BC ==
[~2025-02-14] VITALS: Ht 170.2 cm; Wt 70.0 kg
[2025-02-14 19:41] VITALS: TEMP 98.3
[2025-02-14 20:04] LABS: MEAN PLATELET VOLUME 7.8 FL (7.4-10.4); RED CELL DISTRIBUTION WIDTH 13.2 % (11.5-14.5)
--- NOTE | 2025-02-14 20:04 | RADIOLOGY REPORT ---
EXAM: DI CHEST,SINGLE VIEW TECHNIQUE: Single frontal chest radiograph CLINICAL HISTORY: CP COMPARISON: None Findings/Impression: Frontal chest radiograph demonstrates no acute osseous or superficial soft tissue abnormalities. The trachea is midline. The cardiac silhouette and mediastinum are within normal limits. No pneumothorax, pleural effusions, or consolidations.
[2025-02-14 20:33] LABS: CREATININE 0.66 MG/DL (0.40-0.90); PRO BRAIN NATRIURETIC PEPTIDE 53 PG/ML (0-125); TOTAL CARBON DIOXIDE 27.9 MMOL/L (24-32); eCRCL 122 ML/MIN; eGFR > 90 ML/MIN
[2025-02-14 21:26] VITALS: BP 119/78; PULSE 96; O2SAT 98
[2025-02-14 21:28] VITALS: RESP 16
[2025-02-14 21:50] LABS: LEUKOCYTE ESTERASE ,URINE NEGATIVE (Neg); NITRITES, URINE NEGATIVE (Neg); OCCULT BLOOD,URINE NEGATIVE (Neg)
--- NOTE | 2025-02-14 21:51 | Physician Documentation ---
History of Present Illness ~ Chief Complaint: See Chief Complaint Stated Complaint: CP Time Seen by MD: 21:32 Primary Medical Doctor: MASON Mode of Arrival: POV HPI This 30-year-old female presents to the ED with bilateral lower back pain for the last week she states she has chronic UTIs and an embedded bacteria" she has been followed by a Specialists in the outpatient setting. She states she can currently takes cefdinir nitrofurantoin and Augmentin for her ongoing symptoms. He has any urinary symptoms other than her lower back pain denies any acute injury as well Day of Onset: Feb 14, 2025 Medication Reconciliation Allergies: Coded Allergies: iodine (Unverified Allergy, Unknown, 12/12/20) Scheduled Ibuprofen (Ibuprofen), 1 TAB PO Q8H Ketorolac Tromethamine (Ketorolac Tromethamine), 1 TAB PO Q8H Lactobac Cmb #3/Fos/Pantethine (Probiotic & Acidophilus Cap), 1 CAP PO DAILY Lidocaine/Prilocaine (Lidocaine-Prilocaine Cream), 1 APPLIC TOP TID Nitrofurantoin Monohyd/M-Cryst (Macrobid 100 mg Capsule), 1 CAP PO Q12H Nitrofurantoin Monohyd/M-Cryst (Macrobid 100 mg Capsule), 1 CAP PO Q12H Ondansetron Hcl (Zofran), 1 TAB PO Q8H Scheduled PRN Guaifenesin (Mucinex), 1 TAB PO Q12H PRN for cough Phenazopyridine Hcl (Pyridium tablet), 2 TAB PO Q8H PRN for urinary burning Phenazopyridine Hcl (Pyridium tablet), 2 TAB PO Q8H PRN for pain Past Medical History Past Medical History: Seizures, Asthma, UTI, [place] Past Surgical History: noncontributory Alcohol Use: Rarely Drug Use: marijuana Lives with: Family Lives In: Home Occupation: employed Review of Systems All Other Systems at this time: Reviewed and Negative ROS As stated above in the HPI, otherwise all systems are reviewed and negative. Physical Exam Vital Signs: Temperature: 98.3, Source: Temporal, Heart Rate: 96, Respiratory Rate: 16, BP: 119/78, Pulse Oximetry: 98, Weight: 70.000 Oxygen Flow Rate: 0 Physical Exam General: Alert, no apparent distress. Respiratory: Lungs clear, no respiratory distress. Chest: No accessory muscle use. back: Negative CVA tenderness Neurologic: Oriented x4. Psychiatric: Normal mood and affect. Skin: Normal color, warm and dry. No edema, no ecchymosis. Progress Results/Orders Results/Orders Vital Signs 02/14/25 02/14/25 02/14/25 19:41 21:26 21:28 Temp 98.3 Pulse 101 96 Resp 20 16 16 B/P (MAP) 134/83 119/78 (92) Pulse Ox 97 98 O2 Flow Rate 0 Laboratory Tests Test 02/14/25 19:45 02/14/25 20:30 02/14/25 21:41 White Blood Count 6.4 Red Blood Count 3.85 L Hemoglobin 12.8 Hematocrit 37.1 Mean Corpuscular Volume 96.4 Mean Corpuscular Hemoglobin 33.3 H Mean Corpuscular Hemoglobin Concent 34.6 Red Cell Distribution Width 13.2 Platelet Count 242 Mean Platelet Volume 7.8 Neutrophils (%) (Auto) 48.3 Lymphocytes (%) (Auto) 37.4 Monocytes (%) (Auto) 7.1 Eosinophils (%) (Auto) 5.3 Basophils (%) (Auto) 1.9 H Neutrophils # (Auto) 3.1 Lymphocytes # (Auto) 2.4 Monocytes # (Auto) 0.5 Eosinophils # (Auto) 0.3 Basophils # (Auto) 0.1 CBC Comment Sodium Level 139 Potassium Level 3.7 Chloride Level 105 Carbon Dioxide Level 27.9 Anion Gap 6 L Blood Urea Nitrogen 5 L Creatinine 0.66 Estimated GFR/1.73 m2 > 90 BUN/Creatinine Ratio 7.6 L Glucose Level 90 Calcium Level 8.5 Troponin I High Sensitivity 4 < 4 L Pro-B-Type Natriuretic Peptide 53 Albumin 4.0 Chemistry Comments Urine Specimen Description Cln catch midstream Urine Color Yellow Urine Clarity Clear Urine pH 7.0 Urine Specific [place] 1.015 Urine Protein Negative Urine Glucose (UA) Negative Urine Ketones Negative Urine Occult Blood Negative Urine Nitrite Negative Urine Bilirubin Negative Urine Urobilinogen 0.2 Urine Leukocyte Esterase Negative Urine Culture Indicated Not ind Volume Urine Centrifuged 10 ml Urine Comment Troponin I High Sens Percent Delta Troponin I Hi Sens Absolute Change Medical Decision Making Findings Patient did not present acutely ill her laboratory values and urinalysis were unremarkable. I do not feel it is important for me to start her on another antibiotic considering her concurrent regimen is extensive. She has been followed in the outpatient setting and I advised her to continue to do so. Urinary Diff Dx:Considerations: Include: AAA, , Aortic dissection, Appendicitis, Bowel obstruction, Cholelithiasis, Choleangitis, DJD, Ectopic , Hepatitis, HNP, Impaction, Intrauterine , Musculoskeletal pain, Ovarian torsion, Pancreatitis, PID, Post-Op complication, Pyelonephritis, Renal failure, Strain, Urinary Obstruction, Urolithiasis, Urinary retention, UTI, Vaginitis, Other Departure Disposition: HOME / SELF CARE / HOMELESS Impression: Primary Impression: Chronic UTI Condition: Improved Additional Instructions: Be sure to follow up with the your specialist for further evaluation as I instructed your laboratory values are unremarkable and show no signs of infection Referrals: NO PRIMARY CARE PROVIDER (PCP) Education Educated: Patient Educated regarding: diagnosis Signature Scribe Signature: gf Attestation: Scribed for Karel Duckworth Dog[employer] Day[employer] Activities Director by Karel Wade NP . 02/14/25 22:16 KAREL DUCKWORTH NP Feb 14, 2025 21:51
[2025-02-14 21:56] LABS: UA COLLECTION TYPE CLN CATCH MIDSTREAM
--- NOTE | 2025-02-15 05:41 | ELECTROCARDIOGRAPH REPORT ---
[facility] Test Date: 2025-02-14 Test Time: 19:41:11 Pat Name: LITA JACKSON Department: EMERGENCY ROOM Room: Gender: F Cook Frozen Dessert: MARY ALICE : 1995 Requested By: BERNICE BOWLING Order Number: [id number] Reading MD: Measurements Intervals Plato Rate: 100 P: 76 MS: 179 QRS: 78 QRSD: 91 T: 38 QT: 339 QTc: 438 Interpretive Statements Sinus tachycardia Probable left atrial enlargement Please click the below link to view image of tracing.
== END 2025-02-14 22:34 | disposition home or self-care (01) ==
LOC: ER 19:33
DX: N39.0 Urinary tract infection, site not specified (principal); J45.909 Unspecified asthma, uncomplicated; F12.90 Cannabis use, unspecified, uncomplicated; Z88.8 Allergy status to other drugs, medicaments and biological substances; Z79.899 Other long term (current) drug therapy
CPT/HCPCS: 36415; 71045; 80048; 81003; 83880; 84484; 85025; 93005; 99285